=== PATIENT | male | born 1980 | race Caucasian/White ===

== ENCOUNTER 2021-10-13 11:28 | Emergency (ER) | payer MEDICAID, SELFPAY ==
[2021-10-13 12:07] VITALS: BP 130/89; PULSE 64; RESP 18; TEMP 36.7; O2SAT 94; BMI 28.5
--- NOTE | 2021-10-13 14:54 | ED.EAR ---
HPI - Ear Problem General Chief complaint: Ear Problems Stated complaint: L ear inj Time Seen by Provider: 10/13/21 14:54 Source: patient Mode of arrival: ambulatory Limitations: no limitations History of Present Illness HPI Narrative: yesterday he accidentally jammed a qtip in his left ear, notice blood and that he could not hear MD Complaint: ear pain Location: left ear Duration: constant Severity: moderate Related Data Previous Rx's Medication Instructions Recorded [id number] 3.3 4 drp otic (ear) left TID #10 mL 10/13/21 mg-3 mg-10 mg-0.5 mg/mL ear drops,susp (Cortisporin-TC) Allergies Allergy/AdvReac Type Severity Reaction Status Date / Time No Known Allergies Allergy Verified 10/13/21 12:06 Review of Systems Constitutional: Constitutional: Reports no additional constitutional complaints Eyes: Eyes: Reports no additional eye complaints ENT: Denies dizziness Cardiovascular: Cardiovascular: Reports no additional cardiovascular complaints Respiratory: Respiratory: Reports as per HPI Gastrointestinal: Gastrointestinal: Reports no additional gastrointestinal complaints Musculoskeletal: Musculoskeletal: Reports no additional musculoskeletal complaints Integumentary/Breasts: Skin/Breast: Denies rash Neurologic: Reports system reviewed and no additional complaints, except as documented, Denies dizziness and Denies Sensory deficit (Neuro) Psychiatric: Psychiatric: Denies anxiety Physical Exam Vital Signs: Vital Signs: Last Vital Signs Temp 98.0 F 10/13/21 12:07 Pulse 64 10/13/21 12:07 Resp 18 10/13/21 12:07 BP 130/89 10/13/21 12:07 Pulse Ox 94 10/13/21 12:07 O2 Del Method 10/13/21 12:07 BMI result Body Mass Index 28.5 Const: General: healthy appearing Nutritional Appearance: average body habitus Orientation/consciousness: oriented to person and patient oriented x3 Limitations: no limitations HEENT: Other: Left TM with small perforation and blood Head: Yes normal to inspection General nose exam: Normal external nose present Mouth: Normal oral and palatal mucosa present and oropharynx normal Throat: Yes posterior oropharynx normal Eyes: General: appearance normal, both eyes and all related structures Neck: Other: supple Neck: Yes normal visual inspection Chest: Chest palpation & inspection: normal inspection of the chest Resp: Auscultation: clear to auscultation bilaterally Cardio: Jugular venous distension: no JVD Rate: regular rate Rhythm: regular rhythm Heart sounds: S1 normal heart sound present and S2 normal heart sound present GI: Inspection: Yes normal to inspection Palpation (GI): Soft to palpation, nontender and No hepatosplenomegaly present Auscultation: normal bowel sounds : General: Yes no CVA tenderness Back/Spine/Pelvis: Back: no CVA tenderness Skin: General skin exam: no rashes or lesions noted Neuro: General: oriented to person and patient oriented x3 Cranial nerves: Yes CN's II-XII intact bilaterally Motor exam (neuro): 5/5 motor strength present throughout Sensory Exam: No Sensory deficit (Neuro) Extrem: General: Yes normal to inspection Psych: Appearance: grossly normal Course Reevaluation(s) Reevaluation #1: will place patient on corticosporin and have him follow up with Dr. Ignacio. Time: 15:00 Discharge Plan Discharge Clinical Impression: Ear drum perforation Patient Disposition: Home, Self-Care Instructions: Ruptured Eardrum (ED) Prescriptions: New Cortisporin-TC 3.3-3-10-0.5 mg/mL drops,suspension 4 drp otic (ear) left TID Qty: 10 0RF Referrals: Jitendra Espana [Physician] - 5 days
== END 2021-10-13 15:25 | disposition home or self-care (01) ==
PROVIDERS: Emergency Provider Emergency Medicine
DX: S09.392A Other specified injury of left middle and inner ear, initial encounter (principal); H72.92 Unspecified perforation of tympanic membrane, left ear; T16.2XXA Foreign body in left ear, initial encounter; Y29.XXXA Contact with blunt object, undetermined intent, initial encounter; Y93.9 Activity, unspecified; Y92.9 Unspecified place or not applicable; Y99.9 Unspecified external cause status
CPT/HCPCS: 99282; 99283

== ENCOUNTER 2021-10-13 15:26 | Outpatient (REF) | payer MEDICAID, SELFPAY ==
[2021-10-13 16:39] LABS: Alanine Aminotransferase 117 U/L (0-40); Aspartate Amino Transferase 60 U/L (5-37); Gamma Glutamyl Transpeptidase 59 U/L (11-51)
== END 2021-10-13 15:27 | disposition home or self-care (01) ==
LOC: HO.LAB 15:26
PROVIDERS: Visit Provider Registered Nurse
DX: F11.20 Opioid dependence, uncomplicated (principal)
CPT/HCPCS: 36415; 82977; 84450; 84460